=== PATIENT | female | born 1995 | race African-American/Black ===

== ENCOUNTER → 2016-07-26 14:35 | Emergency (ER) | payer OTHER ==
[2016-07-26 14:05] LABS: INFLUENZA A POS (NEG)
[2016-07-26 14:06] LABS: INFLUENZA B NEG (NEG)
[~2016-07-26 14:35] MED LIST: BACTROBAN22 GM TP; BENADRYL25 M1 PO; BENTYL10 M1 PO; BENZONATATE PO; BROMFED DM COU118 ML PO; CARAFATE1 G PO; FAMOTIDINE20 MG PO; FLONASE16 GM; HYDROCORTISONE30 G1 EXT; NO MEDICATIONS; PHENERGAN25 M1 PO; PREVACID PO; TYLENOL #3 PO; VICODIN 5/500 T1 TAB PO; VISTARIL PO; ZOFRAN ODT4 MG SL; ZYRTEC PO
== END | disposition home or self-care (01) ==
LOC: SED 14:35
PROVIDERS: Nurse Practitioner
DX: J10.1 Influenza due to other identified influenza virus with other respiratory manifestations (principal); H66.92 Otitis media, unspecified, left ear
CPT/HCPCS: 87804; 99283

== ENCOUNTER 2016-09-18 23:00 | Emergency (ER) | payer OTHER ==
--- NOTE | ~2016-09-18 | CR63 ---
[facility] A Service of [facility] RADIOLOGY TEXT RESULTS PATIENT: ALY ARCE LOCATION: SED : [birth year] UNIT #: [id number] AGE: [address]: Malcolm Luna MD SEX: F ORDER DR: [id number] [place] [id number] E MR#: [id number] Acc #: [id number] NAME: ALY ARCE : 1995 SEX: F STUDY DATE/TIME: 09/19/2016 1:11 UNIT: SED ROOM: STUDY DESCRIPTION: CR Chest 2 View Attending Physician: Malcolm Luna M.D. Ordering Physician: Malcolm Luna M.D. Primary Care Physician: Estephania Caban Aprn MEDICAL IMAGING REPORT This report is preliminary unless electronic signature is present. EXAM PA and lateral chest INDICATIONS Cough, pain, palpitations tonight. 09/19 COMPARISON 03/09/2013. FINDINGS PA and lateral examination of the chest upright shows a good expansion of the parenchyma with a normal distribution of the pulmonary vascularity. There is no indication of congestion, effusion, infiltrate, tumor, or nodular density. The pleural reflections and diaphragmatic contours are normal. The cardiac silhouette and mediastinal anatomy is within normal limits. IMPRESSION Normal chest. Dictated by... Arron Hadley M.D. THIS IS AN ELECTRONICALLY VERIFIED REPORT Arron Hadley M.D. at 09/19/2016 5:05 AM FEL/psc TD: 09/19/2016 03:08 JOB #: [id number] MEDICAL IMAGING REPORT [facility] A Service [facility] RADIOLOGY TEXT RESULTS PATIENT: ALY ARCE LOCATION: SED : [birth year] UNIT #: [id number] AGE: [address]: Malcolm Luna MD SEX: F ORDER DR: Page 1 of 1
--- NOTE | ~2016-09-18 | EKG ---
PATIENT: ALY ARCE UNIT #: [id number] Ventricular Rate: 90 BPM Atrial Rate: 90 BPM P-R Interval: 154 ms QRS Duration: 96 ms Q-T Interval: 372 ms QTC Calculation(Bezet): 455 ms P Cheraw: 30 degrees Calculated R Cheraw: 50 degrees Calculated T Cheraw: 12 degrees Diagnosis Line: Normal sinus rhythm Diagnosis Line: Normal ECG Diagnosis Line: When compared with ECG of 19-APR-2015 02:06, Diagnosis Line: No significant change was found Diagnosis Line: Confirmed by BETTY FERRELL MD ([id number]) on 09/25/2016 Diagnosis Line: 11:54:58 AM INTERPRETING MD: MARIAELENA BRADY
== END 2016-09-19 01:38 | disposition home or self-care (01) ==
LOC: SED 23:00
DX: R05 Cough (principal); R00.2 Palpitations; K21.9 Gastro-esophageal reflux disease without esophagitis; F17.200 Nicotine dependence, unspecified, uncomplicated
CPT/HCPCS: 71020; 93005; 99283

== ENCOUNTER → 2016-11-27 | Outpatient (CLI) | payer OTHER ==
[~2016-11-27] MED LIST changes: +MOBIC15 MG
--- NOTE | ~2016-11-27 | US98 ---
[facility] A Service of [facility] & [facility] RADIOLOGY TEXT RESULTS PATIENT: ALY ARCE LOCATION: [facility] : [birth year] UNIT #: [id number] AGE: [address]: Shannon Chirinos MD SEX: F ORDER DR: [id number] [facility] [address] [place], [place] [address] [id number] O MR#: [id number] Acc #: [id number] NAME: ALY ARCE. : 1995 SEX: F STUDY DATE/TIME: 11/27/2016 14:19 UNIT: [facility] ROOM: STUDY DESCRIPTION: US Pelvic Non-OB Complete Attending Physician: Shannon Chirinos M.D. Referring Physician: Shannon Chirinos M.D. Ordering Physician: Shannon Chirinos M.D. Primary Care Physician: Shannon Chirinos M.D. MEDICAL IMAGING REPORT This report is preliminary unless electronic signature is present EXAM Transabdominal and transvaginal pelvic ultrasound. DATE: 11/27/2016 HISTORY Polycystic ovary syndrome. Difficulty conceiving since 2013. G1, P1. Last menstrual period 11/22/2016. FINDINGS Transabdominal imaging was performed for generalized visualization of pelvic structures while transvaginal imaging was performed for more detailed evaluation of the adnexa. Uterus measures 9.8 cm x 4.0 cm x 6.0 cm. Endometrial bilayer is thin, only measuring about 1-2 mm. No focal myometrial abnormality is identified. Right ovary measures 2.1 cm x 1.2 cm x 2.4 cm and contains no appreciable cysts or follicles. The right ovary demonstrates normal color and spectral Doppler flow. The left ovary measures 1.4 cm x 4.5 cm x 1.7 cm and contains multiple small peripheral follicles, with one of the largest measuring about 8 mm. I see at least 7 of these follicles on the longitudinal image. Left ovary demonstrates normal color flow. IMPRESSION 1. Several small follicles are seen within left ovary, but no cystic lesion or follicle is identified within the right ovary. 2. Ovaries demonstrate normal flow. 3. Very thin endometrial bilayer measuring only 1-2 mm. STS. [facility] A Service of [facility] & [facility] RADIOLOGY TEXT RESULTS PATIENT: ALY ARCE LOCATION: [facility] : [birth year] UNIT #: [id number] AGE: [address]: Shannon Chirinos MD SEX: F ORDER DR: Dictated by... Leigha Allen M.D. THIS IS AN ELECTRONICALLY VERIFIED REPORT Leigha Allen M.D. at 11/28/2016 9:37 PM JO/gerardo TD: 11/28/2016 03:55 JOB #: [id number] MEDICAL IMAGING REPORT Page 1 of 1 COPY
--- NOTE | ~2016-11-27 | US24 ---
[facility] A Service of [facility] & [facility] RADIOLOGY TEXT RESULTS PATIENT: ALY ARCE LOCATION: [facility] : [birth year] UNIT #: [id number] AGE: [address]: Shannon Chirinos MD SEX: F ORDER DR: [id number] [facility] [address] [place], [place] [address] [id number] O MR#: [id number] Acc #: [id number] NAME: ALY ARCE. : 1995 SEX: F STUDY DATE/TIME: 11/27/2016 15:04 UNIT: [facility] ROOM: STUDY DESCRIPTION: US Breast Unilateral Attending Physician: Shannon Chirinos M.D. Referring Physician: Shannon Chirinos M.D. Ordering Physician: Shannon Chirinos M.D. Primary Care Physician: Shannon Chirinos M.D. MEDICAL IMAGING REPORT This report is preliminary unless electronic signature is present EXAM Targeted right breast ultrasound 11/27/2016 INDICATIONS 21-year-old female who reports that her primary care physician palpated along in the right breast recently. She denies any focal lung mass or area palpable concern. No family history of breast cancer. TECHNIQUE Sonographic imaging of the area of physician concern was performed in the upper outer quadrant right breast. COMPARISON STUDIES No comparisons. FINDINGS ULTRASOUND: The patient was initially scanned by the technologist and then rescanned in my presence. Targeted physical exam (with patient consent) was performed by me and negative. Imaging of the upper outer quadrant right breast was performed from the 9-11 o'clock positions. There is a small cluster of mildly prominent ducts in the 10 o'clock position, 4 cm from nipple. No internal filling defect or debris, however. No cystic or solid mass identified or persistent area of abnormal shadowing. Absent new or worsening symptoms in either breast, clinical considerations should determine additional imaging at this time. Patient was counseled to return for additional imaging if she developed new abnormality on either side and she voiced understanding and agreement. She should plan on beginning screening mammography regimen at age 38 or sooner based upon risk factors. This was also discussed with the patient and she voiced understanding. STS. [facility] A Service of [facility] & [facility] RADIOLOGY TEXT RESULTS PATIENT: ALY ARCE [id number] [birth year] UNIT #: [id number] AGE: [address]: Shannon Chirinos MD SEX: F ORDER DR: IMPRESSION 1. Targeted ultrasound and physical exam of the upper outer quadrant right breast is negative. Incidental mildly prominent ducts in the 10 o'clock position right breast. Clinical consideration is to determine additional imaging at this time. BIRADS: 1 Negative. Dictated by... Shaheen Yousif M.D. THIS IS AN ELECTRONICALLY VERIFIED REPORT Shaheen Yousif M.D. at 11/28/2016 7:13 AM Marianne TD: 11/27/2016 20:37 JOB #: [id number] MEDICAL IMAGING REPORT Page 1 of 1 COPY
== END | disposition home or self-care (01) ==
LOC: CWCC 13:30
DX: N60.01 Solitary cyst of right breast (principal); E28.2 Polycystic ovarian syndrome
CPT/HCPCS: 76641; 76830; 76856

== ENCOUNTER 2016-12-26 16:48 | Emergency (ER) | payer OTHER ==
[~2016-12-26] VITALS: Ht 162.6 cm; Wt 104.3 kg
[~2016-12-26 16:48] MED LIST changes: -MOBIC15 MG
[2016-12-26 17:24] LABS: URINE SOURCE CLEAN CATCH
[2016-12-26 17:27] LABS: URINE APPEARANCE HAZY; URINE BILIRUBIN NEG (NEG); URINE BLOOD 1+ (NEG); URINE COLOR YELLOW; URINE GLUCOSE NEG (NORM); URINE KETONE NEG (NEG); URINE LEUKOCYTE ESTERASE NEG (NEG); URINE NITRATE NEG (NEG); URINE PH 6.5 (5-8); URINE PROTEIN NEG (NEG); URINE SPECIFIC GRAVITY >=1.030 (1.003-1.035)
[2016-12-26 17:35] LABS: MICRO INDICATED? YES
[2016-12-26 17:36] LABS: CULTURE INDICATED? YES; URINE BACTERIA 4+ (NEG); URINE SQUAMOUS EPITHELIAL CELL MANY /[HPF]
== END 2016-12-26 18:10 | disposition home or self-care (01) ==
LOC: SED 16:48
PROVIDERS: Physician Assistant
DX: N30.01 Acute cystitis with hematuria (principal); K21.9 Gastro-esophageal reflux disease without esophagitis; F17.200 Nicotine dependence, unspecified, uncomplicated
CPT/HCPCS: 81003; 84703; 87086; 87088; 87186; 99283

== ENCOUNTER 2017-02-13 21:42 | Emergency (ER) | payer OTHER ==
[~2017-02-13] VITALS: Ht 162.6 cm; Wt 110.7 kg
[2017-02-13] MEDS ORDERED: MOBIC15 MG (21:57)
== END 2017-02-13 22:54 | disposition home or self-care (01) ==
LOC: SED 21:42
DX: H10.9 Unspecified conjunctivitis (principal)
CPT/HCPCS: 99283